=== PATIENT | male | born 1995 | race Caucasian/White ===

== ENCOUNTER 2018-09-28 23:12 | Emergency (ER) | payer BC ==
[~2018-09-28] VITALS: Ht 180.3 cm; Wt 72.2 kg
[2018-09-28 23:25] VITALS: Ht 180.3 cm; Wt 72.2 kg
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
[2018-09-29] MEDS ORDERED: ACETAMINOPHEN 325 MG TAB PO ONE (01:00)
[2018-09-29] MEDS ORDERED: IBUPROFEN 200 MG TAB PO ONE (01:00)
[2018-09-29] MEDS ORDERED: ONDANSETRON (ODT) 4 MG TAB ODT STA (01:24)
[2018-09-29] MEDS ORDERED: ACET325T33 PO (02:15)
[2018-09-29] MEDS ORDERED: IBUP-1561 PO (02:15)
[2018-09-29 02:23] VITALS: BP 124/65; PULSE 56; RESP 18
== END 2018-09-29 02:24 | disposition home or self-care (01) ==
LOC: FTE 23:12
DX: S06.0X0A Concussion without loss of consciousness, initial encounter (principal); F17.210 Nicotine dependence, cigarettes, uncomplicated; V49.59XA Passenger injured in collision with other motor vehicles in traffic accident, initial encounter
CPT/HCPCS: 70450; 72125